=== PATIENT | female | born 1955 | race Caucasian/White ===

== ENCOUNTER 2017-01-30 06:19 | Day surgery (SDC) | payer BC ==
[2017-01-23 11:15] LABS: ASCORBIC ACID (UR NOT ORDER) NEG (NEG); BILIRUBIN, URINE NEGATIVE (NEG); KETONE, URINE TRACE MG/DL (NEG); LEUKOCYTE ESTERASE(NOT OR LARGE (NEG); WBC (NOT ORDERED) (RFLEX) 17 (0-5)
[2017-01-23 11:25] LABS: HEMATOCRIT 37.1 % (36.0-48.0); HEMOGLOBIN 12.1 g/dL (12.0-16.0)
[2017-01-23 11:35] LABS: BUN (BLOOD UREA NITROGEN) 28 MG/DL (6-23); CHLORIDE, SERUM 104 MMOL/L (96-112); CO2 (CARBON DIOXIDE) 29 MMOL/L (24-34); CREATININE 1.04 MG/DL (0.55-1.02); GFR AFRICAN AMERICAN 67 ML/MIN (>=60); GFR NON AFRICAN AMERICAN 58 ML/MIN (>=60); GLUCOSE, SERUM 239 MG/DL (60-99); POTASSIUM, SERUM 5.6 MMOL/L (3.5-5.3); SODIUM, SERUM 141 MMOL/L (135-148)
--- NOTE | ~2017-01-30 | OP ---
[facility] [place] [id number] [facility] [place]. [address] NAME: WALT JACINTO : 53 STATUS : [facility]#: [id number] AGE: 61 ADM/REG DATE : 01/30/17 MR#: [id number] REPORT SERV DATE: 01/30/17 DICTATED BY: NOMI WALKER JR. DATE: 01/30/17 REPORT STATUS : Draft TRANSCRIBED BY: DANITZA DATE: 01/30/17 DATE OF PROCEDURE: 01/30/2017 PREOPERATIVE DIAGNOSIS: Bladder mass. POSTOPERATIVE DIAGNOSIS: Normal bladder mucosa. PROCEDURE PERFORMED: Cystoscopy, bilateral retrograde pyelogram. COMPLICATIONS: None. CONSULTATIONS: None. ANESTHESIA: General with laryngeal mask airway. SPECIMENS: None. DRAINS: None. ESTIMATED BLOOD LOSS: None. INDICATION: Mrs Jacinto is a 61-year-old female, who was referred to me after a CT scan showed a questionable bladder mass on the dome of her bladder, approximately 10 to 12 mm in size. She comes today for biopsy of that area as well as retrograde pyelograms. PROCEDURE IN DETAIL: After the patient was identified, and proper informed consent was obtained, she was taken to the operating room. General anesthesia was performed without complication using a laryngeal mask airway. She was then prepped and draped in the normal sterile fashion in the lithotomy position. Cystoscopic examination of the urethra and bladder were performed and I did not note any abnormalities within the bladder. The bladder mucosa was normal without tumor, diverticula, or stone. There were no protrusions into the bladder and overall normal cystoscopy. Bilateral retrograde pyelograms were also performed. She does have some stones in the lower pole of the right kidney. These were noted on plain film before injection of contrast, both collecting systems otherwise were normal without filling defect or abnormality. The bladder was drained. The patient was awakened in the operating room and transferred to the postanesthesia care unit in stable condition. VIANEY/DANITZA Nomi Walker Jr., M.D. / [id number] Record [facility] [place] [id number] [facility] [place] [place]. [address] NAME: WALT JACINTO : 53 STATUS : [facility] PAT#: [id number] AGE: 61 ADM/REG DATE : 01/30/17 MR#: [id number] REPORT SERV DATE: 01/30/17 DICTATED BY: NOMI WALKER JR. DATE: 01/30/17 REPORT STATUS : Draft TRANSCRIBED BY: MODL DATE: 01/30/17 CC: Minna Lozano Jr., GEORGE N.
[~2017-01-30 06:19] MED LIST: DIABETA5 PO; GLUCPH8 PO; NORCO1 TA2 PO; PRIN5 PO; PROVHFA INH; ZYRTEC ALLGY10 MG PO
== END 2017-01-30 12:48 | disposition home or self-care (01) ==
LOC: SDC 06:19
PROVIDERS: Urology
PROC: BT14YZZ Fluoroscopy of Kidneys, Ureters and Bladder using Other Contrast (ICD-10-PCS; principal; 2017-01-30 07:45)
DX: R93.41 Abnormal radiologic findings on diagnostic imaging of renal pelvis, ureter, or bladder (principal); I12.9 Hypertensive chronic kidney disease with stage 1 through stage 4 chronic kidney disease, or unspecified chronic kidney disease; K21.9 Gastro-esophageal reflux disease without esophagitis; E78.5 Hyperlipidemia, unspecified; E11.9 Type 2 diabetes mellitus without complications; F41.9 Anxiety disorder, unspecified; M19.90 Unspecified osteoarthritis, unspecified site; I27.2 Other secondary pulmonary hypertension; J45.909 Unspecified asthma, uncomplicated; E66.01 Morbid (severe) obesity due to excess calories; G47.33 Obstructive sleep apnea (adult) (pediatric); Z68.43 Body mass index [BMI] 50.0-59.9, adult; Z87.01 Personal history of pneumonia (recurrent); Z88.1 Allergy status to other antibiotic agents; Z88.5 Allergy status to narcotic agent; Z79.899 Other long term (current) drug therapy
CPT/HCPCS: 74420; 80048; 81001; 82962; 85014; 85018; 87086; 93005; C1758; C1769; J0330; J0694; J2250; J2405; J2710; J3010; Q9967